=== PATIENT | male | born 1965 ===

== ENCOUNTER 2018-12-20 12:24 | Day surgery (SDC) | payer MEDICARE, OTHER ==
--- NOTE | 2018-11-30 17:48 | HP ---
PREOPERATIVE HISTORY AND PHYSICAL: DATE OF ADMISSION/SURGERY: 12/20/18 [facility] ATTENDING SURGEON: Dr. Mariela Jacques.* (DICTATED BY NASIM MARTÍNEZ) CHIEF COMPLAINT: Right knee pain. HISTORY OF PRESENT ILLNESS: Harsha is a 53-year-old male who presents to the clinic for right knee pain due to meniscus tear. He has failed conservative measures and therefore, agreed to undergo a right knee arthroscopy with possible meniscus repair with Dr. Jacques on 12/20/18. PAST MEDICAL HISTORY: Heart disease, high cholesterol. PAST SURGICAL HISTORY: Multiple neck surgeries x4 and left rotator cuff repair. The patient denies prior complications with anesthesia. MEDICATIONS: Atorvastatin 40 mg 1 by mouth every day. ALLERGIES: LIPITOR, ADHESIVE. FAMILY HISTORY: Positive for coronary artery disease, hypertension, and CVA. The patient denies family history of DVT or PE. SOCIAL HISTORY: He lives with his partner. He is disabled. He is a former smoker, quit 15 years ago. He currently chews tobacco. He denies alcohol consumption. He is a recovering alcoholic. He has not drank in over 15 years. He is left-hand dominant. REVIEW OF SYSTEMS: A 14-point review of systems was reviewed with the patient, positive for current complaint, otherwise negative. Denies history of DVT or PE , history of bleeding disorder. Denies fever, chills, chest pain, shortness of breath. PHYSICAL EXAMINATION GENERAL: A 53-year-old well-developed, well-nourished male, in no acute distress. VITAL SIGNS: Height 65, weight 133. Blood pressure 104/62, respiratory rate 18. BMI 22.1. HEENT: Normocephalic, atraumatic. PERRLA. Throat clear. NECK: Supple. PULMONARY: Lungs are clear to auscultation bilaterally. No wheezing, rhonchi, or rales. CARDIO: Regular rate and rhythm. S1, S2. No murmurs, gallops, or rubs. No edema. ABDOMEN: Positive bowel sounds. Soft, nontender. NEUROLOGIC: Alert and oriented x3. Cranial nerves grossly intact. MUSCULOSKELETAL: Right lower extremity: Skin is intact. No warmth or erythema. Nontender over the joint lines, tibia and patellar tendon. Range of motion 0 to 110, painful at the end of range of motion. Stable Maria Fernanda. Negative posterior drawer. Calf is soft and nontender. +5/5 strength to ankle dorsiflexion and plantar flexion. +2 DP pulse. Sensation intact to light touch distally. DIAGNOSTIC STUDIES: MRI of the right knee revealed medial meniscus tear with a possible unstable flap. IMPRESSION: Right knee medial meniscus tear. PLAN: The patient is scheduled to undergo a right knee arthroscopy with possible meniscus repair with Dr. Jacques on 12/20/18. He will follow up in 10 to 14 days postop for followup and suture removal. Tylenol and ibuprofen will be used for postop pain management. NASIM MARTÍNEZ [id number]/[facility] #: [id number] MTDD
[~2018-12-20 12:24] MED LIST: Buffered Lidocaine 1% SYRIN* 1 ML/SYRINGE INTRADERM ONE; Dexamethasone IV* 4 MG/ML 1 ML (4 MG) IV SLOW PU ONE; Famotidine IV* 10 MG/ML 2 ML (20 mg) IV ONE; Lactated Ringers 1000 ML Bag* 1,000 ML IV SCH
[2018-12-20] MEDS ORDERED: Dexamethasone IV* 4 MG/ML 1 ML (4 MG) ONE (12:37)
[2018-12-20] MEDS ORDERED: Famotidine IV* 10 MG/ML 2 ML (20 mg) ONE (12:37)
[2018-12-20] MEDS ORDERED: ceFAZolin 2 GM in NS PREMIX(*) 2 GM/100 ML BAG IVPB ONE (12:37)
[2018-12-20] MEDS ORDERED: Ketorolac INJ* 30 MG/ML 1 ML VIAL ONE (13:27)
[2018-12-20] MEDS ORDERED: Propofol* 10 MG/ML 20 ML BTL ONE (13:27)
[2018-12-20] MEDS ORDERED: Lidocaine 2% PF * 5 ML VIAL ONE (13:27)
[2018-12-20] MEDS ORDERED: Bupivacaine 0.25% SDV* 30 ML ONE (13:27)
[2018-12-20] MEDS ORDERED: Lidocaine 1% w EPI 1:200,000* SDV 30 ML VIAL ONE (13:27)
[2018-12-20] MEDS ORDERED: Midazolam* 1 MG/ML 2 ML VIAL (2 MG) ONE (13:28)
[2018-12-20] MEDS ORDERED: fentaNYL* 50 MCG/ML 5 ML VIAL (250 MCG VIAL) ONE (13:29)
[2018-12-20] MEDS ORDERED: Ondansetron INJ* 2 MG/ML VIAL ONE (14:01)
[2018-12-20] MEDS ORDERED: fentaNYL* 50 MCG/ML 2 ML VIAL (100 MCG VIAL) IV PRN (14:40)
[2018-12-20] MEDS ORDERED: Ondansetron INJ* 2 MG/ML VIAL IV PRN (14:40)
[2018-12-20] MEDS ORDERED: DiMENhydriNATE IV* 50 MG/ML VIAL IV PUSH PRN (14:40)
[2018-12-20] MEDS ORDERED: oxyCODONE/Acetamin 5/325 MG* TAB PO PRN (14:40)
[2018-12-20] MEDS ORDERED: Naloxone* 0.4 MG/ML 1 ML VIAL IV PRN (14:40)
[2018-12-20 15:02] VITALS: BP 132/78
--- NOTE | 2018-12-20 23:29 | OP ---
CC: PCP, Lavelle Spicer MD * DATE OF OPERATION: 12/20/18 [facility] DATE OF : 61 SURGEON: Mariela Jacques MD SUPPORT ASSISTANT: None available. ANESTHESIOLOGIST: Dr. Pisano. ANESTHESIA: General. PRE-OP DIAGNOSIS: Right knee medial meniscus tear. POST-OP DIAGNOSES: 1. Right knee medial meniscus tear. 2. Medial compartment chondrosis. OPERATIVE PROCEDURE: Right knee arthroscopy with partial medial meniscectomy with chondroplasty to the medial femoral condyle. INDICATIONS: Harsha Holguin is a 53-year-old male who has had almost 3 months of knee pain; when he slipped off a ladder, he had immediate catching, popping pain. He had failed conservative management including physical therapy, antiinflammatories, ice, heat, and injection. He has elected to proceed with surgical treatment after being diagnosed with unstable medial meniscus tear. Risks and benefits were discussed at length which included, but not limited to, bleeding; infection; damage to nerves, vessels, and surrounding structures; wound nonhealing; persistent pain; need for further surgery; scarring; stiffness ; incomplete relief of symptoms; risk of anesthesia, risk of DVT. He has elected to proceed. COMPLICATIONS: None. ESTIMATED BLOOD LOSS: Minimal. DESCRIPTION OF PROCEDURE: The patient was greeted in the preoperative area by the attending surgeon. Correct extremity was marked. Consent was confirmed. The patient was brought back to the operating suite. He was placed in the supine position on the operating table, then underwent general anesthesia after which he was properly positioned on the bed. An unsterile tourniquet was placed high on the proximal thigh. The lateral post was positioned. The leg was prepped and draped in the usual sterile fashion beginning with chlorhexidine soap, scrub, and alcohol wipe and a final prep with ChloraPrep. After appropriate surgical pause indicating site, side, procedure, and administration of antibiotics, the knee was intra-articularly injected with 1% lidocaine with epi. Anterolateral portal was made sharply with an 11 blade. Scope was introduced into the joint and the joint was examined. There was abundant synovitis that was present. The anterior, medial, and lateral synovectomy was done. The electrocautery device was used to maintain hemostasis. Patellofemoral joint had grade 0 to 1 changes. Lateral gutter and medial gutter were intact without any loose debris. ACL and PCL were intact. Medial compartment was examined. There was an area of grade 2 changes with unstable flap; this was debrided back using the shaver. There was unstable flap of the meniscus that was debrided back that extended from the very medial aspect to posterior medially, involved some of the root. There was also loose piece that was floating and this was removed. The tibial component had grade 0 to 1 changes. Once unstable flaps were removed with the biters and the mariajose , approximately 30% to 40% of the meniscus was removed. The knee was then placed in a [id number], lateral compartment was examined. There was no obvious tearing, but there was some synovitis; this was debrided back. Remainder of the lateral compartment had grade 0 to 1 changes. Meniscus was intact. The knee was then thoroughly lavaged and removed of any loose debris. The wounds were then copiously irrigated with sterile saline. They were closed in an interrupted fashion with 3-0 nylon. Sterile dressings were applied. The knee was superficially and intra-articularly injected with 0.2% ropivacaine. Sterile dressings were applied and Cryo/Cuff. He was awoken from anesthesia and transferred to PACU in stable condition. POSTOPERATIVE PLAN: He will be weightbearing as tolerated, discharged on pain medications. DVT prophylaxis was considered, but deferred due to no previous personal or family history. I will see the patient back in 10 to 14 days. [id number]/[facility] #: [id number] MIRIAM
== END 2018-12-20 15:27 | disposition home or self-care (01) ==
LOC: OREAST 12:24
PROVIDERS: ATTEND Orthopaedic Surgery
DX: S83.241A Other tear of medial meniscus, current injury, right knee, initial encounter (principal); M93.861 Other specified osteochondropathies, right lower leg; W11.XXXA Fall on and from ladder, initial encounter; Y93.89 Activity, other specified; Y92.9 Unspecified place or not applicable; Z87.891 Personal history of nicotine dependence
CPT/HCPCS: J0690; J1100; J1885; J2001; J2250; J2405; J2704; J3010; J3490